=== PATIENT | female | born 1980 | race Caucasian/White ===

== ENCOUNTER 2018-10-07 13:27 | Emergency (ER) | payer OTHER ==
[~2018-10-07] VITALS: Ht 170.2 cm; Wt 90.7 kg
[2018-10-07 13:29] VITALS: BP 122/82
[2018-10-07] MEDS ORDERED: AUGMENTIN 875-1 EACH PO (15:49)
[2018-10-07] MEDS ORDERED: NORCO 5-325 TA1 EAC1 PO (15:49)
== END 2018-10-07 16:14 | disposition home or self-care (01) ==
LOC: ER 13:27
DX: S02.32XA Fracture of orbital floor, left side, initial encounter for closed fracture (principal); S00.11XA Contusion of right eyelid and periocular area, initial encounter; S00.12XA Contusion of left eyelid and periocular area, initial encounter; W10.8XXA Fall (on) (from) other stairs and steps, initial encounter; Y93.89 Activity, other specified; Y92.89 Other specified places as the place of occurrence of the external cause; Y99.8 Other external cause status